=== PATIENT | female | born 2000 | race Caucasian/White ===

== ENCOUNTER 2024-09-07 13:08 | Outpatient (AMB) | payer MEDICAID, SELFPAY ==
[2024-09-07 13:31] VITALS: BP 109/71; PULSE 73; RESP 15; TEMP 36.6; O2SAT 98; BMI 33.0
--- NOTE | 2024-09-07 13:31 | OBCLNT_ITS ---
Vital Signs 09/07/24 13:31 Height 1.52 m Height Method Stated Weight 76.884 kg Weight Measurement Method Standing Scale BMI 33.0 BP 109/71 Blood Pressure Source Automatic Cuff Blood Pressure Location Right Upper Arm Position Sitting Respiration 15 Pulse 73 Pulse Source Monitor Temp 97.8 F Temp Source Oral Pulse Oximetry (%) 98 Oxygen Delivery Method Room Air Allergies/Home Meds Allergies & Medications Allergies No Known Allergies Allergy (Verified 09/07/24 13:32) Medication Reconciliation No Known Home Medications 09/07/24 [History Confirmed 09/07/24] Intake Visit Data Collection New Patient or Established: New Patient (never been to [facility]) Reason for Visit:: INITIAL CARE/ TRANSFER Seen by Clinical Staff ONLY (RN/MA): No Custodial Engineer Required: No Do You Feel Safe at Home: Yes Authorities Contacted: N/A PCP or OBGYN visit in last 3 months: Yes Hx Now: Yes Are you currently on any form of Control: No Pain Present Currently: No Pain Scale Used: Gordon-Mathews/Numerical Pain scale:: 0 Smoking Status Smoking Status: Never smoker Questionnaires Covid-19 Vaccine Questionnaire Has patient been vacinated for Covid-19 Have you been vacinated for Covid-19: Yes PHQ-9 PHQ-2 Over the last 2 weeks, how often have you been bothered by any of the following problems? 1. Little interest or pleasure in doing things: not at all 2. Feeling down, depressed, or hopeless: not at all Total score: 0 PHQ-9 3. Trouble falling or staying asleep, or sleeping too much: Not at all 4. Feeling tired or having little energy: Not at all 5. Poor appetite or overeating: Not at all 6. Feeling bad about yourself - or that you are a failure or have let yourself or your family down: Not at all 7. Trouble concentrating on things, such as reading the newspaper or watching television: Not at all 8. Moving or speaking so slowly that other people could have noticed? - Or the opposite - being so fidgety or restless that you have been moving around a lot more than usual: not at all 9. Thoughts that you would be better off or of hurting yourself in some way: Not at all Total score: 0 Source: Developed by Rupal Grace B.W. Alexandre, Elliott Arrieta and colleagues, with an educational lisa from [employer]. Depression screen completed yes Social History Living Situation History Lives With: Children Housing: House Tobacco History Smoking Status: Never smoker Second Hand Smoke Exposure: No Alcohol History Alcohol Intake: Never Domestic Abuse History Do You Feel Safe at Home: Yes History of Present Illness HPI Narrative 24-year-old 4 para 1 here for OB transfer. Patient was previously seen at [facility] with Dr. Kincaid. Her has been uneventful. Last. January 21, 2024. This gives a due date October 27, 2024. First ultrasound was June 11 and patient was 20 weeks 3 days. This confirmed dates. Denies social habits. Denies surgery. Denies chronic illness. Patient is O+, antibody screen negative, RPR nonreactive, rubella immune, hepatitis B negative, hep C negative, HIV negative, GC and Chlamydia were negative. She had a normal 1 hour. A1c was 5.1. Negative carrier screens and NIPT. Reports good movement OB Initial Visit OB Flowsheet OB Flowsheet Initial Weight: Not Recorded Date -?-?-?-?-?-?-?-?-?-?-?-?- EGA Weight BP Alb Glu CTX Pres Fundal ht FHR Mov Dilation Station Effacement Hx Notes Visit Note 09/07/24 -?-?-?-?-?-?-?-?-?-?-?-?- 32w 6d 76.884 kg 109/71 absent cephalic 32 146 active OB transfer with records, preg uncomplicated. fetus active, no PTL complaints. patient unsure about TDAP. she will contact [facility]. fetus active. no ptl complaints reviewed chart. sched sono for growth. continue pnv, hydrate. ptl precaution. rtc 2 week Menstrual History Menstrual reliability: definite Flow: normal Menstrual regularity: regular Monthly: Yes Age at menarche: 12 On control pills at conception: No OB History : 2 Para: 1 # of Living Children: 1 Delivery History 1st : sex: male Gestational age at delivery (weeks): 40 Delivery type: vaginal Delivery complications: NONE History of depression before or after : No Infection History & Risk Evaluation History of STDs: none HIV risk evaluation: low risk Hepatitis B risk evaluation: low risk Patient or partner has history of Genital Herpes: No Genetic Screening & History Genetic Screening/Teratology Counseling - Includes patient, baby's father, or anyone in either family with: 1. Patient's age 35 years or older as of estimated date of delivery: No 2. Thalassemia (Sinhala, Guamanian, Mediterranean, or Background); MCV less than 80: No 3. Neural Tube Defect (Meningomyelocele, Spina Bifida, or Anencephaly): No 4. Congenital Heart Defect: No 5. Down Syndrome: No 6. Jonny-Sachs (Ashkenazi Methodist, Cajun, Romansh [place]): No 7. Taylor Disease (Ashkenazi Methodist): No 8. Familial Dysautonomia (Ashkenazi Methodist): No 9. Sickle Cell Disease or Trait (): No 10. Hemophilia or other blood disorders: No 11. Muscular Dystrophy: No 12. Cystic Fibrosis: No 13. Inglis's Chorea: No 14. Mental Retardation/Autism: No 15. Other inherited genetic or chromosomal disorder: No 16. Maternal Metabolic Disorder (EG,TYPE 1 Diabetes, PKU): No 17. Patient or baby's father had a child with defects not listed above: No 18. Recurrent loss or a stillbirth: No 19. Medications (including supplements, vitamins, herbs or otc drugs)/illicit/recreational drugs/alcohol since last menstrual period: No 20. Any other: No Infection History 1. Live with someone with TB or exposed to TB: No 2. Rash or viral illness since last menstrual period: No 3. Hepatitis B,C: No Other (see comments) Source: [employer] Review of Systems Review of Systems Systems Reviewed: All systems reviewed, normal except as documented Exam General Limitations: no limitations General Appearance: alert, in no apparent distress, comfortable, cooperative, healthy appearing, well developed and well groomed Chest Chest inspection: Present normal inspection and symmetric chest wall rise Resp Respiratory exam: Present normal lung sounds bilaterally Card Cardiovascular exam: Present regular rate, normal rhythm and normal heart sounds Abdominal Abdominal exam: Present soft and normal bowel sounds Psych Psychiatric exam: Present normal affect and normal mood Office Procedures OB Clinic LOC & Office Proc's Nursing/Assessment Patient Status: Initial/New Patient OB Clinic Nursing Assessment: Medication Reconciliation, Update PMH in EMR and Vital Signs OB Clinic Coordination of Care: Complex Care and Chronic Disease 1-5, Conse nt,records obtained, informed consent, Education Simp Pt/Fam, Lab and Imaging orders, Results/Orders obtained and Staff clarify orders Special Needs: Heart tones New Patient Charge New Patient Point Assignment: [id number] New Patient Point Charge: [employer] Level 4 ([id number]) Assessment & Plan Diagnosis / Problem List (1) Normal in multigravida in third trimester: Status: Acute Plan Schedule growth sono today. Discussed labor precautions. Continue vitamins and iron. Increase fluids. Discussed kick count. And I offered Tdap. Patient will follow-up next visit if she wants Tdap. Return in 2 weeks OB check Additional Plan Follow Up: 2 Weeks (obc) 2 Weeks
== END 2024-09-07 14:40 | disposition home or self-care (01) ==
LOC: HODSOBC 13:08
PROVIDERS: Supervising Provider Advanced Practice Midwife; Visit Provider Advanced Practice Midwife
DX: Z34.83 Encounter for supervision of other normal pregnancy, third trimester (principal); Z3A.32 32 weeks gestation of pregnancy
CPT/HCPCS: 99204; G0463

== ENCOUNTER 2024-09-21 09:28 | Outpatient (AMB) | payer MEDICAID, SELFPAY ==
[2024-09-21 09:49] VITALS: BP 114/73; PULSE 98; RESP 17; TEMP 36.5; O2SAT 97; BMI 33.2
--- NOTE | 2024-09-21 09:49 | AMB.OBVISIT ---
Vital Signs 09/21/24 09:49 Height 1.52 m Height Method Stated Weight 76.771 kg Weight Measurement Method Standing Scale BMI 33.2 BP 114/73 Blood Pressure Source Automatic Cuff Blood Pressure Location Right Upper Arm Position Sitting Respiration 17 Pulse 98 Pulse Source Monitor Temp 97.7 F Temp Source Temporal Artery Scan Pulse Oximetry (%) 97 Oxygen Delivery Method Room Air Allergies/Home Meds Allergies & Medications Allergies No Known Allergies Allergy (Verified 09/21/24 09:49) Medication Reconciliation vitamin-ferrous fumarate 28 mg iron-folic acid 800 mcg tablet ( Vitamins with Minerals) 1 tab PO QDAY #60 tabs 09/21/24 [Rx] Intake Visit Data Collection New Patient or Established: Established Patient (seen at [facility] within 3 years) Reason for Visit:: OBC Seen by Clinical Staff ONLY (RN/MA): No Faculty I On Call Medical Assistant Required: No Do You Feel Safe at Home: Yes Authorities Contacted: N/A PCP or OBGYN visit in last 3 months: Yes Date of Last PCP or OBGYN visit: 09/07/24 Hx Now: Yes Are you currently on any form of Control: No Pain Present Currently: No Pain Scale Used: Gordon-Mathews/Numerical Pain scale:: 0 Smoking Status Smoking Status: Never smoker Questionnaires Covid-19 Vaccine Questionnaire Has patient been vacinated for Covid-19 Have you been vacinated for Covid-19: Yes PHQ-9 PHQ-2 Over the last 2 weeks, how often have you been bothered by any of the following problems? 1. Little interest or pleasure in doing things: not at all 2. Feeling down, depressed, or hopeless: not at all Total score: 0 PHQ-9 3. Trouble falling or staying asleep, or sleeping too much: Not at all 4. Feeling tired or having little energy: Not at all 5. Poor appetite or overeating: Not at all 6. Feeling bad about yourself - or that you are a failure or have let yourself or your family down: Not at all 7. Trouble concentrating on things, such as reading the newspaper or watching television: Not at all 8. Moving or speaking so slowly that other people could have noticed? - Or the opposite - being so fidgety or restless that you have been moving around a lot more than usual: not at all 9. Thoughts that you would be better off or of hurting yourself in some way: Not at all Total score: 0 If you checked off any problems, how difficult have these problems made it for you to do your work, take care of things at home, or get along with other people?: not difficult at all Source: Developed by Drs. Irineo Bautista, Rupal Schroeder, Elliott Arrieta and colleagues, with an educational lisa from [employer]. Depression screen completed yes Social History Living Situation History Marital Status: Life Partner Lives With: Children Housing: House Tobacco History Smoking Status: Never smoker Second Hand Smoke Exposure: No Alcohol History Alcohol Intake: Never Domestic Abuse History Do You Feel Safe at Home: Yes Care OB Visit Log OB Flowsheet Initial Weight: Not Recorded Date <del>?</del> EGA Weight BP Alb Glu CTX Pres Fundal ht FHR Mov Dilation Station Effacement Hx Notes Visit Note 09/07/24 <del>?</del> 32w 6d 76.884 kg 109/71 absent cephalic 32 146 active OB transfer with records, preg uncomplicated. fetus active, no PTL complaints. patient unsure about TDAP. [facility]. fetus active. no ptl complaints reviewed chart. sched sono for growth. continue pnv, hydrate. ptl precaution. rtc 2 week 09/21/24 <del>?</del> 34w 6d 76.771 kg 114/73 absent cephalic 33 147 active no ob complaints, fetus active, no leaking,bleeding or ROM MFM appointment pending, discuss fkc bid, discuss labor precaution and ER precaution. GBS NV, rtc 3 week obc KINZA Calculator Estimated Delivery Date Method Current WG Current Estimate 10/27/24 LMP (Certain) 34w 6d Other Estimates 10/26/24 Ultrasound #1 35w 0d Notes Visit Date: 09/07/24 Last Updated by: Beverley Tam CNM 24 yo . LMP 01/21/24. EDC 10/27/24. sono: 06/11/24: 20.3:: edc 10/28/24. O+,abs-,rpr;;nr, rub imm, hbsag-,hiv-,GC-/CT-, UT-, 1 hr gtt wnl. hbsag-,hiv-,hc-. NIPT and carrier screen- Office Procedures OB Clinic LOC & Office Proc's Nursing/Assessment Patient Status: Established Patient OB Clinic Nursing Assessment: Medication Reconciliation, Update PMH in EMR and Vital Signs OB Clinic Coordination of Care: Complex Care and Chronic Disease 1-5, Consent,records obtained, informed consent, Education Simp Pt/Fam and Staff clarify orders Special Needs: Heart tones Established Patient Charge Established Patient Point Assignment: 115 Established Patient Point Charge: EP Level 3 (80-115) Assessment & Plan Diagnosis / Problem List (1) Normal in multigravida in third trimester: Status: Acute Plan call for mfm appointment, refill PNV, discuss fkc bid, labor precaution. GBS NV. rtc 3 week Additional Plan Follow Up: 3 Weeks (obc)
== END 2024-09-21 10:00 | disposition home or self-care (01) ==
LOC: HODSOBC 09:28
PROVIDERS: PCP Advanced Practice Midwife; Referring Provider Advanced Practice Midwife; Supervising Provider Advanced Practice Midwife; Visit Provider Advanced Practice Midwife
DX: Z34.83 Encounter for supervision of other normal pregnancy, third trimester (principal); Z3A.34 34 weeks gestation of pregnancy
CPT/HCPCS: 99213; G0463

== ENCOUNTER 2024-09-29 09:23 | Outpatient (AMB) | payer MEDICAID, SELFPAY ==
[2024-09-29 09:38] VITALS: BP 121/74; PULSE 80; RESP 80; TEMP 36.2; O2SAT 98; BMI 33.5
--- NOTE | 2024-09-29 09:38 | OBCLNT_ITS ---
Vital Signs 09/29/24 09:38 Height 1.52 m Height Method Stated Weight 77.621 kg Weight Measurement Method Standing Scale BMI 33.5 BP 121/74 Blood Pressure Source Automatic Cuff Blood Pressure Location Left Upper Arm Position Sitting Respiration 80 H Pulse 80 Pulse Source Monitor Temp 97.2 F Temp Source Oral Pulse Oximetry (%) 98 Oxygen Delivery Method Room Air Allergies/Home Meds Allergies & Medications Allergies No Known Allergies Allergy (Verified 10/31/24 10:42) Medication Reconciliation vitamin-ferrous fumarate 28 mg iron-folic acid 800 mcg tablet ( Vitamins with Minerals) 1 tab PO QDAY #60 tabs 09/21/24 [Rx Confirmed 10/31/24] ferrous sulfate 325 mg (65 mg iron) tablet (FeroSul) 325 mg PO QDAY 10/31/24 [History Confirmed 10/31/24] docusate sodium 100 mg capsule (Stool Softener) 100 mg PO QDAY 30 days #30 caps 11/01/24 [Rx] ibuprofen 400 mg tablet 800 mg (2 x 400 mg) PO Q8H PRN See Comments 10 days #40 tabs 11/01/24 [Rx] Intake Visit Data Collection New Patient or Established: Established Patient (seen at [facility] within 3 years) Reason for Visit:: OB WEEKLY / GBS Seen by Clinical Staff ONLY (RN/MA): No Community Resource Officer Required: No Do You Feel Safe at Home: Yes Authorities Contacted: N/A PCP or OBGYN visit in last 3 months: Yes Date of Last PCP or OBGYN visit: 09/21/24 Hx Now: Yes Are you currently on any form of Control: No Pain Present Currently: No Pain Scale Used: Gordon-Mathews/Numerical Pain scale:: 0 Smoking Status Smoking Status: Never smoker Questionnaires Covid-19 Vaccine Questionnaire Has patient been vacinated for Covid-19 Have you been vacinated for Covid-19: Yes PHQ-9 PHQ-2 Over the last 2 weeks, how often have you been bothered by any of the following problems? 1. Little interest or pleasure in doing things: not at all 2. Feeling down, depressed, or hopeless: not at all Total score: 0 PHQ-9 3. Trouble falling or staying asleep, or sleeping too much: Not at all 5. Poor appetite or overeating: Not at all 6. Feeling bad about yourself - or that you are a failure or have let yourself or your family down: Not at all 7. Trouble concentrating on things, such as reading the newspaper or watching television: Not at all 8. Moving or speaking so slowly that other people could have noticed? - Or the opposite - being so fidgety or restless that you have been moving around a lot more than usual: not at all 9. Thoughts that you would be better off or of hurting yourself in some way: Not at all If you checked off any problems, how difficult have these problems made it for you to do your work, take care of things at home, or get along with other people?: not difficult at all Source: Developed by Drs. Irineo Bautista, Rupal Schroeder, Elliott Arrieta and colleagues, with an educational lisa from [employer]. Depression screen completed yes Social History Living Situation History Lives With: Children Housing: House Tobacco History Smoking Status: Never smoker Second Hand Smoke Exposure: No Alcohol History Alcohol Intake: Never Domestic Abuse History Do You Feel Safe at Home: Yes Care OB Visit Log OB Flowsheet Initial Weight: Not Recorded Date -?-?-?-?-?-?-?-?-?-?-?-?- EGA Weight BP Alb Glu CTX Pres Fundal ht FHR Mov Dilation Station Effacement Hx Notes Visit Note 09/07/24 -?-?-?-?-?-?-?-?-?-?-?-?- 32w 6d 76.884 kg 109/71 absent cephalic 32 146 active OB transfer with records, preg uncomplicated. fetus active, no PTL complaints. patient unsure about TDAP. she will contact [facility]. fetus active. no ptl complaints reviewed chart. sched sono for growth. continue pnv, hydrate. ptl precaution. rtc 2 week 09/21/24 -?-?-?-?-?-?-?-?-?-?-?-?- 34w 6d 76.771 kg 114/73 absent cephalic 33 147 active no ob complaints, fetus active, no leaking,bleeding or ROM MFM appointment pending, discuss fkc bid, discuss labor precaution and ER precaution. GBS NV, rtc 3 week obc 09/29/24 -?-?-?-?-?-?-?-?-?-?-?-?- 36w 0d 77.621 kg 121/74 absent cephalic 36 142 active 24 y/o at 36w0d ? Routine visit Uncomplicated . Good FM, no CTX /LOF/VB. FHR 142 bpm. GBS swab obtained today. Plan: f/u in 1 week with Beverley Reviewed labor precautions (CTX, LOF, VB , ?FM >2?3h ? L&D) 10/13/24 -?-?-?-?-?-?-?-?-?-?-?-?- 38w 0d 78.528 kg 120/75 absent cephalic 38 135 active -2 25 increased uc. no VB ,no leaking. needs jury duty GBS today. urine culture, macrobid 100 bid x7. discuss labor precaution, fkc. rtc 1 week obc KINZA Calculator Estimated Delivery Date Method Current WG Current Estimate 10/27/24 LMP (Certain) 40w 5d Other Estimates 10/26/24 Ultrasound #1 40w 6d Notes Visit Date: 09/07/24 Last Updated by: Beverley Tam, CNM 24 yo . LMP 01/21/24. EDC 10/27/24. sono: 06/11/24: 20.3:: edc 10/28/24. O+,abs-,rpr;;nr, rub imm, hbsag-,hiv-,GC-/CT-, UT-, 1 hr gtt wnl. hbsag-,hiv-,hc-. NIPT and carrier screen- Office Procedures OB Clinic LOC & Office Proc's Nursing/Assessment Patient Status: Established Patient OB Clinic Nursing Assessment: Medication Reconciliation, Update PMH in EMR and Vital Signs OB Clinic Coordination of Care: Consent,records obtained, informed consent, Lab and Imaging orders and Staff clarify orders Special Needs: Heart tones Miscellaneous Interventions: Pelvic Comp w/OB cult Established Patient Charge Established Patient Point Assignment: 105 Established Patient Point Charge: EP Level 3 (80-115) Assessment & Plan Diagnosis / Problem List (1) Supervision of high risk in third trimester: Status: Acute (2) Normal in multigravida in third trimester: Status: Acute Plan Problem List - , 36 weeks gestation - Group B Streptococcus screening Assessment 24-year-old at 36 weeks gestation presenting for routine visit. has been uncomplicated thus far. Group B Streptococcus (GBS) screening performed. heart rate auscultated at 142 bpm, which is within normal range. Patient reports good movement. No contractions, leaking, or bleeding reported. Plan - Perform Group B Streptococcus (GBS) culture swab - Schedule next appointment with Beverley for one week from now - Patient instructed to come to Labor and Delivery if experiencing contractions, leaking fluid, bleeding, or decreased movement for more than 2-3 hours 1. Progress Reviewed gestational age, growth, and heart rate. Planned frequent visits (every 2 weeks until 36 weeks, then weekly). 2. Instructed patient to monitor movements and report decreases immediately. 3. Testing Counseled on routine third-trimester labs per guidelines. Discussed potential need for ultrasound or monitoring based on risk factors. 4. Preeclampsia Precaution Educated on preeclampsia signs: severe headache, vision changes, right upper quadrant pain, sudden swelling. Advised urgent reporting of symptoms and discussed blood pressure monitoring if high risk. 5. Labor Precautions Reviewed labor signs: regular contractions, pelvic pressure, back pain, bleeding, or fluid leakage. Instructed to seek immediate care for these symptoms. 6. Lifestyle and Delivery Preparation Reinforced vitamins, nutrition, and safe activity. Discussed plan, pain management, and . Advised on labor preparation (e.g., hospital bag) and expectations. 7. Psychosocial Support Assessed emotional well-being and offered resources for mental health or parenting support.
== END 2024-09-29 09:59 | disposition home or self-care (01) ==
LOC: HODSOBC 09:23
PROVIDERS: PCP Advanced Practice Midwife; Referring Provider Advanced Practice Midwife; Supervising Provider Obstetrics & Gynecology; Visit Provider Obstetrics & Gynecology
DX: Z34.83 Encounter for supervision of other normal pregnancy, third trimester (principal); Z3A.36 36 weeks gestation of pregnancy; Z36.85 Encounter for antenatal screening for Streptococcus B
CPT/HCPCS: 99213; G0463

== ENCOUNTER 2024-10-13 13:01 | Outpatient (AMB) | payer MEDICAID, SELFPAY ==
[2024-10-13 13:14] VITALS: BP 120/75; PULSE 79; RESP 17; TEMP 36.5; O2SAT 95; BMI 34.0
--- NOTE | 2024-10-13 13:14 | OBCLNT_ITS ---
Vital Signs 10/13/24 13:14 Height 1.52 m Height Method Stated Weight 78.528 kg Weight Measurement Method Standing Scale BMI 34.0 BP 120/75 Blood Pressure Source Automatic Cuff Blood Pressure Location Right Upper Arm Position Sitting Respiration 17 Pulse 79 Pulse Source Monitor Temp 97.7 F Temp Source Temporal Artery Scan Pulse Oximetry (%) 95 Oxygen Delivery Method Room Air Allergies/Home Meds Allergies & Medications Allergies No Known Allergies Allergy (Verified 10/13/24 13:15) Medication Reconciliation vitamin-ferrous fumarate 28 mg iron-folic acid 800 mcg tablet ( Vitamins with Minerals) 1 tab PO QDAY #60 tabs 09/21/24 [Rx Confirmed 10/13/24] nitrofurantoin monohydrate/macrocrystals 100 mg capsule (Macrobid) 100 mg PO BID 7 days #14 caps 10/13/24 [Rx] Intake Visit Data Collection New Patient or Established: Established Patient (seen at [facility] within 3 years) Reason for Visit:: OB WEEKLY Seen by Clinical Staff ONLY (RN/MA): No Stock Transfer Clerk Required: No Do You Feel Safe at Home: Yes Authorities Contacted: N/A PCP or OBGYN visit in last 3 months: Yes Date of Last PCP or OBGYN visit: 09/29/24 Hx Now: Yes Are you currently on any form of Control: No Pain Present Currently: No Pain Scale Used: Gordon-Mathews/Numerical Pain scale:: 0 Smoking Status Smoking Status: Never smoker Questionnaires Covid-19 Vaccine Questionnaire Has patient been vacinated for Covid-19 Have you been vacinated for Covid-19: No PHQ-9 PHQ-2 Over the last 2 weeks, how often have you been bothered by any of the following problems? 1. Little interest or pleasure in doing things: not at all 2. Feeling down, depressed, or hopeless: not at all Total score: 0 PHQ-9 3. Trouble falling or staying asleep, or sleeping too much: Not at all 4. Feeling tired or having little energy: Not at all 5. Poor appetite or overeating: Not at all 6. Feeling bad about yourself - or that you are a failure or have let yourself or your family down: Not at all 7. Trouble concentrating on things, such as reading the newspaper or watching television: Not at all 8. Moving or speaking so slowly that other people could have noticed? - Or the opposite - being so fidgety or restless that you have been moving around a lot more than usual: not at all 9. Thoughts that you would be better off or of hurting yourself in some way: Not at all Total score: 0 If you checked off any problems, how difficult have these problems made it for you to do your work, take care of things at home, or get along with other people?: not difficult at all Source: Developed by Drs. Irineo Bautista, Rupal Schroeder, Elliott Arrieta and colleagues, with an educational lisa from [employer]. Depression screen completed yes Social History Living Situation History Marital Status: Unknown Lives With: Children Housing: House Tobacco History Smoking Status: Never smoker Second Hand Smoke Exposure: No Alcohol History Alcohol Intake: Never Domestic Abuse History Do You Feel Safe at Home: Yes Care OB Visit Log OB Flowsheet Initial Weight: Not Recorded Date -?-?-?-?-?-?-?-?-?-?-?-?- EGA Weight BP Alb Glu CTX Pres Fundal ht FHR Mov Dilation Station Effacement Hx Notes Visit Note 09/07/24 -?-?-?-?-?-?-?-?-?-?-?-?- 32w 6d 76.884 kg 109/71 absent cephalic 32 146 active OB transfer with records, preg uncomplicated. fetus active, no PTL complaints. patient unsure about TDAP. she will contact living water. fetus active. no ptl complaints reviewed chart. sched sono for growth. continue pnv, hydrate. ptl precaution. r tc 2 week 09/21/24 -?-?-?-?-?-?-?-?-?-?-?-?- 34w 6d 76.771 kg 114/73 absent cephalic 33 147 active no ob complaints, fetus active, no leaking,bleeding or ROM MFM appointment pending, discuss fkc bid, discuss labor precaution and ER precaution. GBS NV, rtc 3 week obc 10/13/24 -?-?-?-?-?-?-?-?-?-?-?-?- 38w 0d 78.528 kg 120/75 absent cephalic 38 135 active -2 25 increased uc. no VB ,no leaking. needs jury duty GBS today. urine culture, macrobid 100 bid x7. discuss labor precaution, fkc. rtc 1 week obc KINZA Calculator Estimated Delivery Date Method Current WG Current Estimate 10/27/24 LMP (Certain) 38w 0d Other Estimates 10/26/24 Ultrasound #1 38w 1d Notes Visit Date: 09/07/24 Last Updated by: Beverely Tam CNM 24 yo . LMP 01/21/24. EDC 10/27/24. sono: 06/11/24: 20.3:: edc 10/28/24. O+,abs-,rpr;;nr, rub imm, hbsag-,hiv-,GC-/CT-, UT-, 1 hr gtt wnl. hbsag-,hiv-,hc-. NIPT and carrier screen- Office Procedures OB Clinic LOC & Office Proc's Nursing/Assessment Patient Status: Established Patient OB Clinic Nursing Assessment: Medication Reconciliation, Update PMH in EMR and Vital Signs OB Clinic Coordination of Care: Complex Care and Chronic Disease 1-5, Consent,records obtained, informed consent, Education Simp Pt/Fam and Staff clarify orders Special Needs: Heart tones Established Patient Charge Established Patient Point Assignment: 115 Established Patient Point Charge: EP Level 3 (80-115) Assessment & Plan Diagnosis / Problem List (1) Normal in multigravida in third trimester: Status: Acute Plan jury duty note. GBS today. discuss labor precaution, fkc nid, urine culture today. macrobid 100 bid x7, increase fluid. rtc 1 week Additional Plan Follow Up: 1 Week (obc)
== END 2024-10-13 13:48 | disposition home or self-care (01) ==
LOC: HODSOBC 13:01
PROVIDERS: Supervising Provider Advanced Practice Midwife; Visit Provider Advanced Practice Midwife
DX: Z34.83 Encounter for supervision of other normal pregnancy, third trimester (principal); Z3A.38 38 weeks gestation of pregnancy; Z36.85 Encounter for antenatal screening for Streptococcus B
CPT/HCPCS: 99213; G0463

== ENCOUNTER 2024-10-31 09:59 | Inpatient (IN) | payer MEDICAID, SELFPAY ==
[2024-10-31] VITALS (71 sets, daily range): BP systolic 115–163; BP diastolic 58–90; PULSE 68–113; RESP 20–99; TEMP 36.8–37; O2SAT 89–100; BMI 34.7
[2024-10-31 10:36] LABS: Basophils # (Auto) 0.0 Thou/mm3 (0.0-0.2); Basophils % (Auto) 0 % (0-2.5); Eosinophils # (Auto) 0.0 Thou/mm3 (0.0-0.5); Eosinophils % (Auto) 0 % (0-10); Hematocrit 36.4 % (36.0-46.0); Hemoglobin 12.1 g/dL (12.0-16.0); Immature Granulocytes Auto 0.05 Thou/mm3 (0.00-0.00); Lymphocytes # (Auto) 2.3 Thou/mm3 (1.0-4.8); Lymphocytes % (Auto) 21 % (10-50); Mean Corpuscular HGB Conc 33.2 g/dl (31.0-37.0); Mean Corpuscular Hemoglobin 27.6 pg (25.0-35.0); Mean Corpuscular Volume 83 fL (80-100); Monocytes # (Auto) 0.7 Thou/mm3 (0.0-0.8); Monocytes % (Auto) 6 % (0-12); Neutrophils # (Auto) 7.6 Thou/mm3 (1.8-7.7); Neutrophils % (Auto) 72 % (37-80); Nucleated Red Blood Cell # 0.00 Thou/mm3 (0.00-0.00); Nucleated Red Blood Cell % 0 /100 WBC (0); Platelet Count 402 Thou/mm3 (140-440); RDW Standard Deviation 48.1 fL (36.4-46.3); Red Blood Count 4.38 Miln/mm3 (4.00-5.20); White Blood Count 10.6 Thou/mm3 (3.6-11.0)
[2024-10-31] MEDS: RINGERS LACTATED 1000 ML 1,000 ML 100 ML IV ×3 (10:40→12:11)
[2024-10-31 12:25] LABS: Syphilis Nonreactive (Nonreactive)
[2024-10-31] MEDS: OXYTOCIN in NS 20 units 20 UNIT/1,000 ML BAG 125 UNIT IV (14:14)
[2024-10-31] MEDS: BENZO/LANO/ALOE (Dermoplast) 60 GM CAN 1 SPRAY TOP (14:36)
--- NOTE | 2024-10-31 14:46 | PD.LDHP ---
Documentation for date of: 10/31/24 OB Labor/Induct. HPI History of Present Illness Chief complaint: Active labor : 2 Para: 1 Term pregnancies: 1 pregnancies: 0 Living children: 1 History of Abortions: Spontaneous and Elective: 0 History of Vaginal deliveries: 1 History of sections: No History of : No KINZA: 10/27/24 Gestational Age (weeks): 40 Gestational Age (days): 4 History of present illness: The patient is a 24-year-old -0-2-1 at 40 weeks and 4 days dated by a 20-week ultrasound presents in labor. She was 3 to 4 cm dilated when she presented to the hospital at 950 in the morning on 10/31/2024. She was admitted. She was very uncomfortable. She had labor epidural placed shortly after admission. All care was started at [facility] with Dr. Walker. She transferred to [facility] when she was 32-6/7 weeks . Blood type is O+. Group B strep was negative. Due date was 10/26/2024. History of Present Dating criteria: LMP confirmed by 2nd trimester US Adequate Care: Yes Ultrasounds: normal mid trimester US Obstetrical complications: none Medical complications: none Labs Maternal Blood Type: O Pos Labs: Positive: Rubella Titre, Negative: RPR, Hepatitis B, HIV, Chlamydia, Gonorrhea and Group Beta Strep and Unknown: Herpes Type 1, Herpes Type 2 and Covid-19 Past Medical History Surgical History SURGICAL: Negative Section Meds Home Medications and Allergies Home Medications ?Medication ?Instructions ?Recorded ?Confirmed ?Type ferrous sulfate 325 mg (65 mg 325 mg PO QDAY 10/31/24 10/31/24 History iron) tablet (FeroSul) Allergies Allergy/AdvReac Type Severity Reaction Status Date / Time No Known Allergies Allergy Verified 10/31/24 10:42 OB Exam Physical Exam Vital signs: Temp Pulse Resp BP Pulse Ox O2 Del Method 98.3 F 81 20 132/80 H 100 Room Air 10/31/24 10:06 10/31/24 14:37 10/31/24 10:06 10/31/24 14:37 10/31/24 14:09 10/31/24 10:06 Detailed Labor and Delivery Exam Effacement (%): 80 Cervix position: mid station: -2 Consistency: soft Presentation: Vertex Membranes: intact monitor accelerations: 10x10 monitor decelerations: None terminal operations supervisor variability: Average (6-10) Contraction frequency (min): Every 3 minutes OB Results Labs 10/31/24 10:20 Labs: Short CBC 10/31/24 Range/Units 10:20 WBC 10.6 (3.6-11.0) Thou/mm3 Hgb 12.1 (12.0-16.0) g/dL Hct 36.4 (36.0-46.0) % Plt Count 402 (140-440) Thou/mm3 OB Assessment & Plan Assessment and Plan (1) Supervision of high risk in third trimester: Status: Acute Assessment and plan: Admit patient. Epidural as requested. Anticipate . Additional Plan Induction method: none Plan: anticipate NVD
--- NOTE | 2024-10-31 14:57 | PD.LDDELS ---
Data ([place]) Data Hx Section: No Maternal Blood Type: O Pos Rubella Titre: Positive RPR: Non-reactive Labs: Negative: RPR, Hepatitis B, HIV, Chlamydia, Gonorrhea and Group Beta Strep and Unknown: Herpes Type 1 and Herpes Type 2 : 2 Term: 1 : 0 Livin Abortions: Spontaneous & Theraputic: 0 Delivery Data ([place]) Labor Data Initiation of labor: Spontaneous Induction/Augmentation Agent: Artificial ROM ROM date: 10/31/24 ROM time: 12:45 Amniotic membrane rupture type: Artificial Amniotic fluid description: Particulate Meconium Delivery Data EDC: 10/27/24 EDC calculated by:: ultrasound Date of arrival to unit: 10/31/24 Time of arrival to unit: 09:50 Onset of labor date: 10/31/24 Onset of labor time: 12:45 Complete dilation date: 10/31/24 Complete dilation time: 14:00 [place] delivery date: 10/31/24 delivery time: 14:11 Gestational age (weeks): 40 Gestational age (days): 4 Placenta delivery date: 10/31/24 Placenta delivery time: 14:14 Stage 1 total time: Labor - Stage 1 Duration 1 hours and 15 minutes Delivered by: Danika Gibson (OB Clinic) Delivery nurse: Yaquelin Felix RN [place] nurse: Gerhard Solano RN Electric Meter Inspector at delivery: No Support person(s) at delivery: fob Other staff at delivery: Gerhard [place] Delivery Method Delivery method: Normal Vaginal Delivery Presentation: Vertex position: OA Anesthesia Type Anesthesia Type: Epidural Delivery Room Medications Delivery room medications: Pitocin 20 u IV Placenta Placenta delivery description: Spontaneous Cord blood sent to lab: Yes cord blood collection: Cord Blood Type, Arterial Cord Blood Gas and Venous Cord Blood Gas Episiotomy Episiotomy description: None Lacerations #1: Perineal: 1st degree Periurethral: First-degree periurethral Perineal repair Sutures used for repair: 4.0 Chromic EBL Estimated blood loss (ml): 50 Umbilical Cord cord description: 3 Vessels Additional Procedures The patient is a 24-year-old -0-2-1 at 40-4/7 weeks who presented to the hospital in active labor about 10:00 in the morning 10/31/2024. She had progressed to 8 to 9 cm and an AROM was performed at 1245 and thick meconium noted. An IUPC was placed. The patient went on to progress to complete an hour later and began pushing once the room was set up. She pushed through a total of one contraction delivering a liveborn female. Findings: Liveborn female in the ABUNDIO presentation with no nuchal cord and with thick meconium. Apgars were 8 and 9 weight was 7 pounds 3 ounces. The baby was placed immediately on mother's chest and cord clamping was delayed for 1 minute. The cord was clamped and cut and the was handed off to the waiting pediatric staff. A respiratory therapist and NICU nurse were present at delivery secondary to thick meconium. A segment of cord was sent down for umbilical cord gases. Cord blood was collected. The placenta was complete, spontaneous, meconium stained, with a normal cord insertion and grossly normal delivering approximately 3 minutes after the baby delivered. Patient sustained very small periurethral and perineal lacerations. Both were repaired with a single ctdstv-[id number]-cvyad suture of 4-0 chromic. Complications were none. Condition both mom and were in stable condition in the delivery room. Of note Dr. Lynne was called to evaluate the baby had about 15 to 20 minutes of life for some concern about some meconium and some decreased saturations. He did evaluate the baby and The baby at bedside with mom and dad. Blood gases were normal with pH umbilical artery 7.26 base excess -4.4. pH umbilical vein 7.33 with a base excess of -2.9. Complications Complications: none [place] Data ([place]) Data 's gender: Female weight (gms): 3270 g Weight (pounds): 7 lbs and 3.3 ozs 1 minute: 8 5 minutes: 9
[2024-10-31 20:58] LABS: Basophils # (Auto) 0.0 Thou/mm3 (0.0-0.2); Basophils % (Auto) 0 % (0-2.5); Eosinophils # (Auto) 0.0 Thou/mm3 (0.0-0.5); Eosinophils % (Auto) 0 % (0-10); Hematocrit 33.6 % (36.0-46.0); Hemoglobin 11.0 g/dL (12.0-16.0); Immature Granulocytes Auto 0.06 Thou/mm3 (0.00-0.00); Lymphocytes # (Auto) 2.0 Thou/mm3 (1.0-4.8); Lymphocytes % (Auto) 16 % (10-50); Mean Corpuscular HGB Conc 32.7 g/dl (31.0-37.0); Mean Corpuscular Hemoglobin 27.7 pg (25.0-35.0); Mean Corpuscular Volume 85 fL (80-100); Monocytes # (Auto) 0.8 Thou/mm3 (0.0-0.8); Monocytes % (Auto) 6 % (0-12); Neutrophils # (Auto) 10.0 Thou/mm3 (1.8-7.7); Neutrophils % (Auto) 78 % (37-80); Nucleated Red Blood Cell # 0.00 Thou/mm3 (0.00-0.00); Nucleated Red Blood Cell % 0 /100 WBC (0); Platelet Count 348 Thou/mm3 (140-440); RDW Standard Deviation 49.7 fL (36.4-46.3); Red Blood Count 3.97 Miln/mm3 (4.00-5.20); White Blood Count 12.9 Thou/mm3 (3.6-11.0)
[2024-11-01 00:37] VITALS: BP 128/78; PULSE 74; RESP 20; TEMP 36.8; O2SAT 99
[2024-11-01 05:12] VITALS: BP 101/64; PULSE 79; RESP 20; TEMP 37.1; O2SAT 99
--- NOTE | 2024-11-01 08:04 | ESPR_ITS ---
Subjective Subjective Interval history: Delivery type: Patient doing well this morning. No acute complaints. Ambulating, tolerating p.o. and voiding without difficulty. HTN/Pre-Eclampsia screen: No chest pain, shortness of breath, headache, visual changes, epigastric or right upper quadrant pain. Breast-feeding, lochia diminishing. Bowel: Flatus+/ BM+ Exam Vital Signs Temp Pulse Resp BP Pulse Ox O2 Del Method 98.8 F 79 20 101/64 99 Room Air 11/01/24 05:12 11/01/24 05:12 11/01/24 05:12 11/01/24 05:12 11/01/24 05:12 11/01/24 05:12 Constitutional Constitutional: no acute distress Routine HEENT Exam Head: Present normocephalic and atraumatic Eye: Present EOMI and PERRL ENT: Present mucous membranes moist Routine Neck Exam Neck: Present supple and trachea midline Routine Respiratory Exam Respiratory: Present chest non-tender, lungs clear, normal breath sounds and no resp distress Routine Cardiovascular Exam Cardiovascular: Present RRR Routine Abdominal Exam Abdominal: Present soft and normoactive bowel sounds Routine Extremities Exam Extremities: Present full ROM Routine Skin Exam Skin: Present intact, dry and warm Routine Neurological Exam Neurological: Present alert, oriented X3 and CN II-XII intact Routine Psychiatric Exam Psychiatric: Present normal affect and normal thought process Objective Labs 10/31/24 20:47 Labs: Laboratory Results - last 24 hr 10/31/24 10/31/24 10:20 20:47 WBC 10.6 12.9 H RBC 4.38 3.97 L Hgb 12.1 11.0 L Hct 36.4 33.6 L MCV 83 85 MCH 27.6 27.7 MCHC 33.2 32.7 RDW Std Deviation 48.1 H 49.7 H Plt Count 402 348 D Neut % (Auto) 72 78 Lymph % (Auto) 21 16 [place] % (Auto) 6 6 Eos % (Auto) 0 0 Baso % (Auto) 0 0 Neut # (Auto) 7.6 10.0 H Lymph # (Auto) 2.3 2.0 [place] # (Auto) 0.7 0.8 Eos # (Auto) 0.0 0.0 Baso # (Auto) 0.0 0.0 Immature Gran # (Auto) 0.05 H 0.06 H Absolute Nucleated RBC 0.00 0.00 Immature Gran % 1 H 1 H Nucleated RBC % 0 0 Syphilis Serology Nonreactive Blood Type O Positive Antibody Screen NEGATIVE Blood Bank Wristband ID Yes Assessment & Plan Problem List (1) Supervision of high risk in third trimester: Status: Acute Assessment and plan: PPD/POD#2 1. Continue routine care 2. Transition to PO meds. 3. Encourage to ambulate/ breast-feed 4. Anticipate discharge home today. Time Spent With Patient Time: Total time spent is greater than 50% in coordination of care (as documented) at patient's floor/unit and/or counseling patient:
--- NOTE | 2024-11-01 08:06 | PD.LDDS ---
DS: Providers Provider Date of admission: 10/31/24 16:39 Primary care physician: Physician No Primary/Family Admitting Provider: Danika Gibson MD ([facility]) Attending Provider on Admission: Nithin Sigala MD Consults: 10/31/24 16:17 Referral Routine Comment: Attending Provider on DC: Nithin Sigala MD Discharging Provider: Nithin Sigala MD DS: Diagnosis Discharge Diagnosis (1) Supervision of high risk in third trimester: Status: Acute Problem List Completed Was Problem List Reviewed/Reconciled?: Yes Summary/Hosp Course Brief History: The patient is a 24-year-old -0-2-1 at 40 weeks and 4 days dated by a 20-week ultrasound presents in labor. She was 3 to 4 cm dilated when she presented to the hospital at 950 in the morning on 10/31/2024. She was admitted. She was very uncomfortable. She had labor epidural placed shortly after admission. All care was started at [facility] with Dr. Walker. She transferred to [facility] when she was 32-6/7 weeks . Blood type is O+. Group B strep was negative. Due date was 10/26/2024. Peripartum Data Delivery Method: Normal Vaginal Delivery Episiotomy Description: None Time Spent with Patient Time attestation: Total time spent providing and/or coordinating discharge services: Exam Vital Signs Temp Pulse Resp BP Pulse Ox O2 Del Method 98.8 F 79 20 101/64 99 Room Air 11/01/24 05:12 11/01/24 05:12 11/01/24 05:12 11/01/24 05:12 11/01/24 05:12 11/01/24 05:12 Discharge Plan Plan Patient Disposition: HOME (Self Care) Patient condition on transfer: Stable Prescriptions/Referrals Prescriptions/Med Rec: New ibuprofen 400 mg Tablet 800 mg PO Q8H PRN (Reason: See Comments) 10 Days Qty: 40 0RF docusate sodium [Stool Softener] 100 mg capsule 100 mg PO QDAY 30 Days Qty: 30 0RF Continued vit-iron fum-folic ac [ Vitamin with Minerals] 28 mg iron- 800 mcg tablet 1 tab PO QDAY Qty: 60 2RF ferrous sulfate [FeroSul] 325 mg (65 mg iron) tablet 325 mg PO QDAY Patient Comments: take 1 tablet by mouth once daily Referrals: Nithin Sigala MD [Physician] - No Primary/Family,Physician [Primary Care Provider] - Patient/Caregiver Discharge Instructions Discharge Activity: activity as tolerated Education Materials: After a Vaginal , Depression, Eclampsia After Childbirth, After Delivery Concerns Print Language: Lebanese Stand Alone Forms: Georgie Award Info., Patient Portal Info Letter Discharge Order Discharge Orders: Discharge (Routine); Ordered 11/01/24 Ordered By: Nithin Sigala Planned Discharge Date 11/01/24
[2024-11-01 19:50] VITALS: BP 105/67; PULSE 93; RESP 20; TEMP 37.5; O2SAT 99
== END 2024-11-01 20:30 | disposition home or self-care (01) | DRG 560 ==
LOC: S4SX 10:02 → S4NX 11-01 08:04 → S4SX 11-02 05:32
PROVIDERS: Admitting Provider Obstetrics & Gynecology; Visit Provider Obstetrics & Gynecology
DX: O48.0 Post-term pregnancy (principal); Z37.0 Single live birth; Z3A.40 40 weeks gestation of pregnancy; O70.0 First degree perineal laceration during delivery; O71.82 Other specified trauma to perineum and vulva; O77.0 Labor and delivery complicated by meconium in amniotic fluid
CPT/HCPCS: 36415; 59025; 59409; 59899; 85025; 86780; 86850; 86900; 86901; 94762; G0378; J2590; J2795; J3010; J7120; A9270